=== PATIENT | female | born 1980 | race African-American/Black ===

== ENCOUNTER → 2016-06-30 | Outpatient (CLI) | payer OTHER ==
[~2016-06-30] VITALS: Ht 170.2 cm; Wt 72.1 kg
[~2016-06-30] MED LIST: NS 1,000 ML IV ONE; PROPOFOL 200 MG/20 ML VIAL As Ordered ONE; [UNRECOGNIZED DRUG - OTHER]
--- NOTE | 2016-06-30 11:08 | ROOR ---
Patient Name: Mariajose Reddy Procedure Date: 06/30/2016 10:24 AM Date of : 1980 Age: 35 Room: [facility] Gender: Female Note Status: Finalized Procedure: Colonoscopy Indications: Rectal bleeding Providers: Wu Malone MD Referring MD: ERIC MCINTOSH MD Requesting Provider: Medicines: Monitored Anesthesia Care Complications: No immediate complications. Procedure: Pre-Anesthesia Assessment: - Prior to the procedure, a History and Physical was performed, and patient medications and allergies were reviewed. The patient is competent. The risks and benefits of the procedure and the sedation options and risks were discussed with the patient. All questions were answered and informed consent was obtained. Patient identification and proposed procedure were verified by the physician, the nurse and the anesthesiologist in the endoscopy suite. Mental Status Examination: alert and oriented. Airway Examination: normal oropharyngeal airway and neck mobility. Respiratory Examination: clear to auscultation. CV Examination: normal. Prophylactic Antibiotics: The patient does not require prophylactic antibiotics. Prior Anticoagulants: The patient has taken no previous anticoagulant or antiplatelet agents. ASA Grade Assessment: I - A normal, healthy patient. After reviewing the risks and benefits, the patient was deemed in satisfactory condition to undergo the procedure. The anesthesia plan was to use monitored anesthesia care (MAC). Immediately prior to administration of medications, the patient was re-assessed for adequacy to receive sedatives. The heart rate, respiratory rate, oxygen saturations, blood pressure, adequacy of pulmonary ventilation, and response to care were monitored throughout the procedure. The physical status of the patient was re-assessed after the procedure. The Colonoscope was introduced through the anus and advanced to the cecum, identified by appendiceal orifice and ileocecal valve. The colonoscopy was technically difficult and complex due to significant looping and a tortuous colon. Successful completion of the procedure was aided by changing the patient to a supine position and applying abdominal pressure. The patient tolerated the procedure well. The quality of the bowel preparation was good. Findings: The perianal exam findings include non-thrombosed external hemorrhoids and hypertrophied anal papilla(e). The colon (entire examined portion) appeared normal. No additional abnormalities were found on retroflexion. Impression: - Non-thrombosed external hemorrhoids and hypertrophied anal papilla(e) found on perianal exam. - The entire examined colon is normal. - No specimens collected. Recommendation: - Discharge patient to home (ambulatory). - High fiber diet. Wu Malone MD Wu Malone MD 06/30/2016 11:08:16 AM This report has been signed electronically. Number of Addenda: 0 Note Initiated On: 06/30/2016 10:24 AM Estimated Blood Loss: Estimated blood loss: none.
[2016-06-30 11:30] VITALS: BP 106/59
== END | disposition home or self-care (01) ==
LOC: M OPP 10:00
PROVIDERS: ATTEND Surgery
DX: K62.5 Hemorrhage of anus and rectum (principal); K64.4 Residual hemorrhoidal skin tags; K62.89 Other specified diseases of anus and rectum; K59.00 Constipation, unspecified; K64.8 Other hemorrhoids; G43.909 Migraine, unspecified, not intractable, without status migrainosus; Z87.891 Personal history of nicotine dependence; Z80.3 Family history of malignant neoplasm of breast